=== PATIENT | female | born 1975 | race Two or more races ===

== ENCOUNTER 2021-02-15 17:36 | Emergency (ER) | payer OTHER ==
[~2021-02-15] VITALS: Ht 157.5 cm; Wt 68.0 kg
[2021-02-15 18:26] LABS: BASOPHILS % (AUTO) 1 % (0-1); EOSINOPHILS % (AUTO) 2 % (1-7); LYMPHOCYTES % (AUTO) 41 % (22-44); MEAN CORPUSCULAR HEMOGLOBIN 22.3 pg (27.0-34.8); MEAN CORPUSCULAR HGB CONC 31.5 g/dL (32.4-35.8); MEAN PLATELET VOLUME 8.9 fL (7.4-10.4); MONOCYTES % (AUTO) 7 % (2-9); NEUTROPHILS % (AUTO) 50 % (42-75); PLATELET COUNT 336 x10^3/uL (130-400); RED BLOOD COUNT 4.02 x10^6/uL (3.82-5.3); RED CELL DISTRIBUTION WIDTH 19.8 % (9.6-15.2)
[2021-02-15 18:35] LABS: CHLORIDE 107 mmol/L (98-107)
[2021-02-15 18:42] LABS: ALBUMIN 3.4 g/dL (3.4-5.0); ALKALINE PHOSPHATASE 59 U/L (45-117); ANION GAP 7 mmol/L (5-15); BILIRUBIN,TOTAL 0.2 mg/dL (0.2-1.0); CREATININE 0.77 mg/dL (0.55-1.02); TOTAL PROTEIN 7.6 g/dL (6.4-8.2)
[2021-02-15 18:44] LABS: ALANINE AMINOTRANSFERASE 18 U/L (12-78)
--- NOTE | 2021-02-15 20:28 | NUR ---
dance therapist: patient to room from lobby.
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
[2021-02-15 20:38] VITALS: BP 108/67
--- NOTE | 2021-02-15 20:45 | NUR ---
ERMD SAHM AT BEDSIDE FOR EVAL
--- NOTE | 2021-02-15 21:50 | NUR ---
PT EDUCATED ON DC INSTRUCTIONS AND FOLLOW-UP, VERBALIZED UNDERTSANDING. TAKEN VIA WHEELCHAIR TO DC DESK ACCOMPANIED BY DAUGHTER, [place].
== END 2021-02-15 21:52 | disposition home or self-care (01) ==
LOC: ED 21:25
DX: N92.4 Excessive bleeding in the premenopausal period (principal); D64.9 Anemia, unspecified; R94.31 Abnormal electrocardiogram [ECG] [EKG]
CPT/HCPCS: 36415; 76830; 80053; 84703; 85025; 86850; 86900; 93005; 99285